=== PATIENT | female | born 1975 | race Two or more races ===

== ENCOUNTER 2018-03-11 09:36 | Emergency (ER) | payer OTHER ==
[~2018-03-11] VITALS: Ht 157.5 cm; Wt 54.0 kg
[2018-03-11] MEDS ORDERED: predniSONE 20 mg tablet PO ONE ×2 (09:50→10:05)
[2018-03-11] MEDS ORDERED: diphenhydrAMINE 25mg capsule PO ONE (10:05)
[2018-03-11] MEDS ORDERED: PRED20TA PO (10:07)
[2018-03-11 10:47] VITALS: BP 146/93
== END 2018-03-11 10:50 | disposition home or self-care (01) ==
LOC: ER 09:38
DX: L50.0 Allergic urticaria (principal); F17.200 Nicotine dependence, unspecified, uncomplicated; Z60.2 Problems related to living alone
CPT/HCPCS: 93005; 99283; J7512; Q0163

== ENCOUNTER 2021-09-12 09:56 | Emergency (ER) | payer OTHER ==
[~2021-09-12] VITALS: Ht 154.9 cm; Wt 60.9 kg
[2021-09-12] MEDS ORDERED: cloNIDine 0.1 mg tablet PO ONE (12:00)
[2021-09-12] MEDS: hyDRALAzine 10mg tablet PO SCH ×2 (13:43→14:37)
[2021-09-12] MEDS ORDERED: hyDRALAzine 10mg tablet PO STA (14:12)
[2021-09-12 14:47] LABS: BASOPHILS % (AUTO) 0.5 % (0-1); EOSINOPHILS # (AUTO) 0.2 X10'3 (0-0.9); EOSINOPHILS % (AUTO) 2.8 % (0-6); HEMATOCRIT 33.1 % (35.0-45.0); HEMOGLOBIN 11.1 g/dl (12.0-16.0); LYMPHOCYTES # (AUTO) 1.7 X10'3 (1.1-4.8); LYMPHOCYTES % (AUTO) 24.2 % (21-51); MEAN CORPUSCULAR HEMOGLOBIN 27.1 PG (27.0-31.0); MEAN CORPUSCULAR HGB CONC 33.5 g/dL (33.0-36.5); MEAN CORPUSCULAR VOLUME 80.9 FL (78-98); MEAN PLATELET VOLUME 7.6 FL (7.4-10.4); MONOCYTES # (AUTO) 0.5 X10'3 (0-0.9); MONOCYTES % (AUTO) 7.1 % (2-12); NEUTROPHILS # (AUTO) 4.5 X10'3 (1.8-7.7); NEUTROPHILS % (AUTO) 65.4 % (42-75); PLATELET COUNT 292 X10'3 (140-440); RED BLOOD COUNT 4.09 X10'6 (4.20-5.60); WHITE BLOOD COUNT 6.9 X10'3 (4.5-11.0)
[2021-09-12 15:01] LABS: ALANINE AMINOTRANSFERASE 24 U/L (12-78); ALBUMIN 3.4 G/DL (3.4-5.0); ALBUMIN/GLOBULIN RATIO 0.8 (1.1-1.5); ALKALINE PHOSPHATASE 113 IU/L (46-116); ANION GAP 10 (8-16); ASPARTATE AMINO TRANSFERASE 17 U/L (10-37); BILIRUBIN,TOTAL 0.2 MG/DL (0.1-1.0); BLOOD UREA NITROGEN 21 MG/DL (7-18); BUN/CREATININE RATIO 18.6 (6.6-38.0); CALCIUM 8.5 MG/DL (8.5-10.1); CHLORIDE 106 MMOL/L (99-107); CREATININE 1.13 MG/DL (0.40-0.90); GLUCOSE 89 MG/DL (70-104); POTASSIUM 3.8 MMOL/L (3.5-5.1); SODIUM 141 MMOL/L (135-145); TOTAL CARBON DIOXIDE 24.8 MMOL/L (24-32); TOTAL PROTEIN 7.8 G/DL (6.4-8.2); eGFR 52 ML/MIN
[2021-09-12 15:07] LABS: TROPONIN I < 0.04 NG/ML (0.0-0.05)
[2021-09-12 15:16] VITALS: BP 141/95
[2021-09-12] MEDS ORDERED: HYDR25TA5 PO (15:21)
[2021-09-12] MEDS ORDERED: hyDRALAzine 10mg tablet PO SCH (16:00)
== END 2021-09-12 15:27 | disposition home or self-care (01) ==
LOC: ER 09:56
DX: I10 Essential (primary) hypertension (principal)
CPT/HCPCS: 36415; 70450; 80053; 83880; 84484; 85025; 93005; 99285

== ENCOUNTER 2021-09-15 09:42 | Emergency (ER) | payer OTHER ==
[~2021-09-15] VITALS: Ht 154.9 cm; Wt 61.8 kg
[~2021-09-15 09:42] MED LIST: HYDR25TA5 PO
--- NOTE | 2021-09-15 10:45 | NUR ---
at bedside. Pt c/o having weakness in R LE. Pt was here 4 days ago for the same.
[2021-09-15 10:53] VITALS: BP 160/96
--- NOTE | 2021-09-15 11:00 | NUR ---
Pt given and understands d/c instructions. Ambulatory with a steady gait.
== END 2021-09-15 11:00 | disposition home or self-care (01) ==
LOC: ER 09:44
DX: I10 Essential (primary) hypertension (principal); R20.0 Anesthesia of skin; Z60.2 Problems related to living alone; Z79.899 Other long term (current) drug therapy
CPT/HCPCS: 93005; 99283

== ENCOUNTER 2022-02-13 01:35 | Emergency (ER) | payer OTHER ==
[~2022-02-13] VITALS: Ht 154.9 cm; Wt 60.9 kg
[2022-02-13 02:23] LABS: BASOPHILS # (AUTO) 0.1 X10'3 (0-0.2); EOSINOPHILS # (AUTO) 0.8 X10'3 (0-0.9); EOSINOPHILS % (AUTO) 8.7 % (0-6); HEMATOCRIT 38.7 % (35.0-45.0); HEMOGLOBIN 13.2 g/dl (12.0-16.0); LYMPHOCYTES # (AUTO) 2.2 X10'3 (1.1-4.8); LYMPHOCYTES % (AUTO) 23.6 % (21-51); MEAN CORPUSCULAR HEMOGLOBIN 28.1 PG (27.0-31.0); MEAN CORPUSCULAR HGB CONC 34.1 g/dL (33.0-36.5); MEAN CORPUSCULAR VOLUME 82.3 FL (78-98); MEAN PLATELET VOLUME 8.2 FL (7.4-10.4); MONOCYTES # (AUTO) 0.7 X10'3 (0-0.9); MONOCYTES % (AUTO) 7.3 % (2-12); NEUTROPHILS # (AUTO) 5.6 X10'3 (1.8-7.7); NEUTROPHILS % (AUTO) 59.4 % (42-75); PLATELET COUNT 363 X10'3 (140-440); RED CELL DISTRIBUTION WIDTH 13.8 % (11.5-14.5); WHITE BLOOD COUNT 9.4 X10'3 (4.5-11.0)
[2022-02-13 02:29] LABS: ALANINE AMINOTRANSFERASE 21 U/L (12-78); ALBUMIN 4.2 G/DL (3.4-5.0); ALBUMIN/GLOBULIN RATIO 0.9 (1.1-1.5); ALKALINE PHOSPHATASE 168 IU/L (46-116); ANION GAP 13 (8-16); ASPARTATE AMINO TRANSFERASE 17 U/L (10-37); BILIRUBIN,TOTAL 0.3 MG/DL (0.1-1.0); BLOOD UREA NITROGEN 26 MG/DL (7-18); BUN/CREATININE RATIO 13.8 (6.6-38.0); CALCIUM 9.4 MG/DL (8.5-10.1); CHLORIDE 100 MMOL/L (99-107); CREATININE 1.88 MG/DL (0.40-0.90); GLUCOSE 100 MG/DL (70-104); SODIUM 136 MMOL/L (135-145); TOTAL CARBON DIOXIDE 22.8 MMOL/L (24-32); TOTAL PROTEIN 9.1 G/DL (6.4-8.2); eGFR 29 ML/MIN
[2022-02-13 02:38] LABS: POTASSIUM 3.7 MMOL/L (3.5-5.1)
[2022-02-13] MEDS ORDERED: hydrALAZINE 20mg/ml inj. IV ONE (06:30)
[2022-02-13] MEDS ORDERED: proCHLORperazine 10 MG/2 ml inj IV ONE (06:30)
[2022-02-13] MEDS ORDERED: acetaminophen 325mg tablet PO ONE (06:30)
[2022-02-13] MEDS ORDERED: AMLO10TA PO (06:31)
[2022-02-13 07:25] VITALS: BP 136/103
== END 2022-02-13 07:29 | disposition home or self-care (01) ==
LOC: ER 01:36
DX: I10 Essential (primary) hypertension (principal); R51.9 Headache, unspecified; Z60.2 Problems related to living alone; Z79.899 Other long term (current) drug therapy
CPT/HCPCS: 36415; 71045; 80053; 83880; 84484; 85025; 93005; 96374; 96375; 99285; J0360; J0780

== ENCOUNTER 2023-06-18 10:49 | Day surgery (SDC) | payer OTHER ==
[~2023-06-18] VITALS: Ht 154.9 cm; Wt 51.0 kg
[~2023-06-18 10:49] MED LIST changes: +AMLO10TA PO
[2023-06-18 11:05] VITALS: BP 135/86; PULSE 64; RESP 16; TEMP 98; O2SAT 99
[2023-06-18] MEDS ORDERED: normal saline 1000ml 1,000 ML IV PRN (11:15)
[2023-06-18 11:30] VITALS: RESP 16; O2SAT 99
[2023-06-18] MEDS ORDERED: ERGO500093 PO (11:36)
[2023-06-18] MEDS ORDERED: SODI650T29 PO (11:36)
[2023-06-18] MEDS ORDERED: METO50TA16 PO (11:36)
[2023-06-18] MEDS ORDERED: ROSU40TA22 PO (11:36)
[2023-06-18] MEDS ORDERED: LOSA50TA64 PO (11:36)
[2023-06-18 11:42] LABS: BASOPHILS # (AUTO) 0.1 X10'3 (0-0.2); BASOPHILS % (AUTO) 0.9 % (0-1); EOSINOPHILS # (AUTO) 0.5 X10'3 (0-0.9); EOSINOPHILS % (AUTO) 8.5 % (0-6); HEMATOCRIT 27.5 % (35.0-45.0); LYMPHOCYTES # (AUTO) 1.7 X10'3 (1.1-4.8); MEAN CORPUSCULAR HGB CONC 32.8 g/dL (33.0-36.5); MEAN CORPUSCULAR VOLUME 85.3 FL (78-98); MEAN PLATELET VOLUME 8.5 FL (7.4-10.4); MONOCYTES # (AUTO) 0.5 X10'3 (0-0.9); MONOCYTES % (AUTO) 8.8 % (2-12); NEUTROPHILS # (AUTO) 3.3 X10'3 (1.8-7.7); NEUTROPHILS % (AUTO) 53.8 % (42-75); PLATELET COUNT 246 X10'3 (140-440); RED BLOOD COUNT 3.23 X10'6 (4.20-5.60); WHITE BLOOD COUNT 6.1 X10'3 (4.5-11.0)
[2023-06-18] MEDS ORDERED: fentaNYL/PF 50MCG/1 ML 2ML syringe ONE (12:31)
[2023-06-18] MEDS ORDERED: midazolam 1 mg/ML 2ml injection ONE (12:31)
[2023-06-18] MEDS ORDERED: heparin 1,000unit/ml 10ml vial 10 ML ONE (12:32)
[2023-06-18] MEDS ORDERED: LIDOcaine 1% 30ml preserv. free vial ONE (12:32)
[2023-06-18 13:30] VITALS: BP 141/93; PULSE 71; RESP 16; O2SAT 98
[2023-06-18 13:45] VITALS: BP 133/91; PULSE 73; RESP 16; O2SAT 96
[2023-06-18 14:00] VITALS: BP 120/79; PULSE 63; RESP 16; O2SAT 97
[2023-06-18 14:12] VITALS: BP 112/77; PULSE 69; RESP 16; O2SAT 99
== END 2023-06-18 14:35 | disposition home or self-care (01) ==
LOC: SSTAY O 10:49
PROVIDERS: ATTEND Radiology Diagnostic Radiology
DX: I12.0 Hypertensive chronic kidney disease with stage 5 chronic kidney disease or end stage renal disease (principal); N18.6 End stage renal disease; Z98.890 Other specified postprocedural states; Z79.899 Other long term (current) drug therapy
CPT/HCPCS: 36415; 36558; 76937; 77001; 85025; 85610; 99152; 99153; C1750; C1769; J1644; J2250; J3010; J3490; J7030; A4620; C1894